=== PATIENT | female | born 1960 | race African-American/Black ===

== ENCOUNTER 2018-12-11 09:19 | Emergency (ER) | payer MEDICAID ==
[~2018-12-11] VITALS: Ht 162.6 cm; Wt 69.0 kg
[2018-12-11 09:45] VITALS: BP 139/90
== END 2018-12-11 13:25 | disposition left against medical advice (07) ==
LOC: ER 09:19
DX: R42 Dizziness and giddiness (principal); Z53.21 Procedure and treatment not carried out due to patient leaving prior to being seen by health care provider